=== PATIENT | female | born 1985 | race Caucasian/White ===

== ENCOUNTER → 2022-05-22 | Outpatient (CLI) | payer OTHER, SELFPAY ==
--- NOTE | 2022-05-22 16:49 | MRI_ITS ---
EXAM: MR RIGHT LOWER EXTREMITY WITHOUT INTRAVENOUS CONTRAST, KNEE CLINICAL INDICATION: PAIN TECHNIQUE: Multiplanar and multisequence MR images of the right knee without intravenous contrast. This report was created using [employer] report generation technology. COMPARISON: None. FINDINGS: BONES/JOINTS: Menisci are intact. Small bone island involving the epiphyses of the distal femur. No concerning marrow signal alterations. Small bone island involving the epiphyses of the distal femur. EXTENSOR MECHANISM: Extensor mechanism is intact. MEDIAL MENISCUS: See above. LATERAL MENISCUS: See above. MEDIAL CAPSULE/SUPPORTING STRUCTURES: Unremarkable. Intact. LATERAL CAPSULE/SUPPORTING STRUCTURES: Unremarkable. Lateral collateral ligamentous complex, inclusive of the popliteal tendon, are intact. ANTERIOR CRUCIATE LIGAMENT: Cruciate ligaments are intact. POSTERIOR CRUCIATE LIGAMENT: See above. MUSCLES: Unremarkable. CARTILAGE: No focal chondral defects or significant arthritic changes. FLUID: At least moderate suprapatellar joint effusion. No definite intra-articular ossific bodies or significant synovitis. OTHER SOFT TISSUES: See above. OTHER FINDINGS: Medial and lateral supporting structures are intact. MRI/Lower Ext Joint Only (Routine) IMPRESSION: 1. At least moderate suprapatellar joint effusion without definite intra-articular ossific bodies or synovitis. 2. No other significant internal derangement. Electronically Signed: Marvin Drew MD at 19:24 EDT ,
== END | disposition home or self-care (01) ==
PROVIDERS: Visit Provider Orthopaedic Surgery
DX: M25.561 Pain in right knee (principal)
CPT/HCPCS: 73721